=== PATIENT | female | born 1985 | race Caucasian/White ===

== ENCOUNTER 2022-11-11 05:25 | Emergency (ER) | payer OTHER ==
[~2022-11-11] VITALS: Ht 152.4 cm; Wt 50.8 kg
[2022-11-11 05:33] VITALS: BP 115/68; PULSE 89; RESP 16; TEMP 98.1; O2SAT 99
[2022-11-11] MEDS ORDERED: ONDANSETRON 4 MG ODT PO ONE (07:55)
[2022-11-11] MEDS ORDERED: KETOROLAC 30 MG/ML VIAL IM ONE (07:55)
[2022-11-11 09:26] LABS: BASOPHILS # (AUTO) 0.1 K/uL (0.00-0.22); BASOPHILS % (AUTO) 0.4 % (0.0-2.0); EOSINOPHILS % (AUTO) 0.2 % (0.0-4.0); HEMATOCRIT 40.5 % (36-48); HEMOGLOBIN 13.8 g/dL (12.0-16.0); LYMPHOCYTES # (AUTO) 1.5 K/uL (2.5-16.5); LYMPHOCYTES % (AUTO) 10.1 % (20.5-51.1); MEAN CORPUSCULAR HEMOGLOBIN 30 pg (27-31); MEAN CORPUSCULAR HGB CONC 34 g/dL (33-37); MONOCYTES # (AUTO) 0.6 K/uL (0.8-1.0); MONOCYTES % (AUTO) 3.8 % (1.7-9.3); NEUTROPHILS # (AUTO) 12.8 K/uL (1.8-7.7); NEUTROPHILS % (AUTO) 85.5 % (42.2-75.2); PLATELET COUNT (AUTO) 401 K/uL (140-450); RED CELL DISTRIBUTION WIDTH 13.7 % (11.6-13.7)
[2022-11-11 09:36] VITALS: O2SAT 99
[2022-11-11] MEDS ORDERED: ONDANSETRON 4 MG TAB ONE (09:40)
[2022-11-11] MEDS ORDERED: KETOROLAC 30 MG/ML VIAL ONE (09:41)
[2022-11-11] MEDS ORDERED: ONDANSETRON 4 MG ODT ONE (09:49)
[2022-11-11 10:22] LABS: ALBUMIN 4.1 g/dL (3.4-5.0); ANION GAP 12.9 (8-16); CALCIUM 9.2 mg/dL (8.5-10.1); CARBON DIOXIDE 27.2 mmol/L (21-32); CREATININE 0.5 mg/dL (0.6-1.3); POTASSIUM 4.1 mmol/L (3.5-5.1); TOTAL BILIRUBIN 0.4 mg/dL (0.0-1.0); TOTAL PROTEIN, SERUM 8.2 g/dL (6.4-8.2)
[2022-11-11] MEDS ORDERED: ONDA-188 SL (10:47)
[2022-11-11 10:54] VITALS: BP 115/68; PULSE 89; RESP 16; TEMP 98.1; O2SAT 99
== END 2022-11-11 10:53 | disposition home or self-care (01) ==
LOC: MED 05:25
DX: K80.20 Calculus of gallbladder without cholecystitis without obstruction (principal); Z79.899 Other long term (current) drug therapy
CPT/HCPCS: 36415; 76705; 80053; 81002; 81025; 83690; 85025; 96372; 99285; J1885; Q0092; Q0162